=== PATIENT | female | born 1970 | race Two or more races ===

== ENCOUNTER → 2018-02-18 | Emergency (ER) | payer OTHER ==
[~2018-02-18] VITALS: Ht 160 cm; Wt 48.1 kg
[~2018-02-18] MED LIST: PROTONIX40 MG PO
== END | disposition home or self-care (01) ==
LOC: ER 01:27
DX: K29.60 Other gastritis without bleeding (principal)

== ENCOUNTER 2021-02-27 07:35 | Outpatient (CLI) | payer OTHER | END 2021-02-27 07:47 | disposition home or self-care (01) | LOC: RX STUDY 07:35 | PROVIDERS: ATTEND Internal Medicine Gastroenterology | DX: K56.699 Other intestinal obstruction unspecified as to partial versus complete obstruction (principal); R10.84 Generalized abdominal pain ==